=== PATIENT | female | born 1995 | race American Indian/Alaskan Native ===

== ENCOUNTER 2018-02-17 18:03 | Outpatient (CLI) | payer MEDICAID ==
[2018-02-17] MEDS ORDERED: LACTATED RINGERS 500 ML IV ONE (18:08)
[2018-02-17] MEDS ORDERED: LACTATED RINGERS 1,000 ML IV ONE (18:44)
[2018-02-17 18:56] LABS: Bacteria,Urine 1+ /HPF (Negative); Bilirubin,Urine NEG (Negative); Blood,Urine NEG (Negative); Color,Urine Amber (Yellow); Mucus,Urine 3+ /HPF
--- NOTE | 2018-02-17 19:58 | Event Note ---
Date: 02/17/18 22 year old at 29 4/7 weeks gestation presented to triage complaining of lower pelvic pain in midline beginning today. Patient denies back pain, flank pain, fever, chills, nausea or vomiting. Pt. reports a few [place] contractions after standing at work all day. She denies regular contractions. Patient denies leaking of fluid or vaginal bleeding. Patient reports active movement. Patient is well appearing, alert, oriented, NAD. Afebrile. VSS. Abdomen soft, nontender; no CVAT. Urine shows + WBCs, + RBCs, + bacteria. Cervix closed, thick , posterior. Rx Macrobid 100 mg, #14, 1 po BID called to [facility] on [address] for patient. Advised pt. to increase water intake (pt. has received IV hydration here in triage today). Advised pt. re: UTI warning signs. Follow up with [facility] this week. Discussed signs of PTL and warning signs with pt. Pt. voiced understanding.
[2018-02-17] MEDS ORDERED: BRETHINE SUB-Q ONE (20:21)
[2018-02-17] MEDS ORDERED: BRETHINE ONE (20:23)
[2018-02-17] MEDS ORDERED: ROCEPHIN/NS 1 GM/50 ML 1 GM/50 ML BAG IV ONE (20:23)
[2018-02-17 21:40] VITALS: BP 129/70
== END 2018-02-17 21:55 | disposition home or self-care (01) ==
LOC: TRG 18:03
PROVIDERS: ATTEND Obstetrics & Gynecology
DX: O47.03 False labor before 37 completed weeks of gestation, third trimester (principal); Z3A.29 29 weeks gestation of pregnancy
CPT/HCPCS: 81001; J0696; J3105; J7120; 59025; 96360; 96365; 96372

== ENCOUNTER 2019-01-02 14:00 | Emergency (ER) | payer MEDICAID ==
[2019-01-02 14:19] VITALS: BP 122/74
--- NOTE | 2019-01-02 14:21 | Emergency Department Report ---
ED Eye Problem HPI - General Chief complaint: Eye Problems Stated complaint: PINK EYE Time Seen by Provider: 01/02/19 14:16 Source: patient Mode of arrival: Ambulatory Limitations: No Limitations - History of Present Illness Initial comments: pt is a 23 yo female who presents to the ED with erythema and pain to the bilateral eyes that began 4 days ago. she has associated drainage which is yellow/green in color from bilateral eyes. she states she has noticed crusting and matting of the eyelashes. no vision problems. no one else with the same thing. did not get anything in the eye. no contact use. no PMHx. no allergies to meds. - Related Data Home Medications Medication Instructions Recorded Confirmed Last Taken Vits96/Iron Fum/Folic 1 tab PO DAILY 06/14/13 04/14/18 06/25/13 08:00 [ Tablet] Previous Rx's Medication Instructions Recorded Last Taken Type Ferrous Sulfate [Feosol 325 MG tab] 325 mg PO BID #60 tablet 04/14/18 Unknown Rx HYDROcodone/APAP 5-325 [[place] 1 each PO Q6HR PRN #30 tablet 04/14/18 Unknown Rx 5/325] Ibuprofen [Motrin] 800 mg PO Q8HR PRN #30 tablet 04/14/18 Unknown Rx Vit Calc,Iron,Folic 1 each PO DAILY #30 tablet 04/14/18 Unknown Rx [ Vitamins] Erythromycin [Erythromycin Ophth 0.5 inch OP QID 5 Days #1 tube 01/02/19 Unknown Rx Oint] Allergies Allergy/AdvReac Type Severity Reaction Status Date / Time No Known Allergies Allergy Verified 06/25/13 22:28 ED Review of Systems ROS: Stated complaint: PINK EYE Other details as noted in HPI Comment: All other systems reviewed and negative ED Past Medical Hx - Past Medical History Previous Medical History?: No Hx Hypertension: No Hx Congestive Heart Failure: No Hx Diabetes: No Hx Deep Vein Thrombosis: No Hx Renal Disease: No Hx Sickle Cell Disease: No Hx Seizures: No Hx Asthma: No Hx COPD: No Hx HIV: No - Surgical History Past Surgical History?: Yes Additional Surgical History: - Social History Smoking Status: Never Smoker - Medications Home Medications: Home Medications Medication Instructions Recorded Confirmed Last Taken Type Vits96/Iron Fum/Folic 1 tab PO DAILY 06/14/13 04/14/18 06/25/13 08:00 History [ Tablet] Ferrous Sulfate [Feosol 325 MG tab] 325 mg PO BID #60 tablet 04/14/18 Unknown Rx HYDROcodone/APAP 5-325 [[place] 1 each PO Q6HR PRN #30 tablet 04/14/18 Unknown Rx 5/325] Ibuprofen [Motrin] 800 mg PO Q8HR PRN #30 tablet 04/14/18 Unknown Rx Vit Calc,Iron,Folic 1 each PO DAILY #30 tablet 04/14/18 Unknown Rx [ Vitamins] Erythromycin [Erythromycin Ophth 0.5 inch OP QID 5 Days #1 tube 01/02/19 Unknown Rx Oint] ED Physical Exam - General Limitations: No Limitations General appearance: alert, in no apparent distress - Head Head exam: Present: atraumatic, normocephalic - Eye Eye exam: Present: PERRL, EOMI, conjunctival injection (bilaterally with mucus drainage in the corners of the bilateral eyes ). Absent: scleral icterus, nystagmus, periorbital swelling, periorbital tenderness - ENT ENT exam: Present: mucous membranes moist - Neurological Exam Neurological exam: Present: alert, oriented X3 - Psychiatric Psychiatric exam: Present: normal affect, normal mood - Skin Skin exam: Present: warm, dry, intact ED Course Vital Signs 01/02/19 14:17 Temperature 98.0 F Pulse Rate 91 H Respiratory 18 Rate Blood Pressure 122/74 O2 Sat by Pulse 100 Oximetry ED Medical Decision Making - Medical Decision Making pt is a 23 yo female who presents to the ED with erythema and pain to the bilateral eyes that began 4 days ago. she has associated drainage which is yellow/green in color from bilateral eyes. she states she has noticed crusting and matting of the eyelashes. no vision problems. no one else with the same thing. did not get anything in the eye. no contact use. no PMHx. no allergies to meds. examination consistent with bilateral conjunctivitis. pt given prescription for erythromycin ointment. advised to please use medication as prescribed. follow up with a primary care doctor in the next 2-3 days. return to the emergency room for any new or worsening symptoms. - Differential Diagnosis conjunctivitis, hordeolum, chalazion, corneal abrasion Critical care attestation.: If time is entered above; I have spent that time in minutes in the direct care of this critically ill patient, excluding procedure time. ED Disposition Clinical Impression: Conjunctivitis Qualifiers: Conjunctivitis type: acute Acute conjunctivitis type: unspecified Laterality: bilateral Qualified Code(s): H10.33 - Unspecified acute conjunctivitis, bilateral Disposition: TO HOME OR SELFCARE Is pt being admited?: No Does the pt Need Aspirin: No Condition: Stable Instructions: Conjunctivitis (ED) Additional Instructions: please use medication as prescribed. follow up with a primary care doctor in the next 2-3 days. return to the emergency room for any new or worsening symptoms. Prescriptions: Erythromycin [Erythromycin Ophth Oint] 0.5 inch OP QID 5 Days #1 tube Referrals: [facility] [Outside] - 2-3 Days [facility] [Provider Group] - 2-3 Days [facility] [Outside] - 2-3 Days Forms: Work/School Release Form(ED) Time of Disposition: 14:20 Print Language: PORTUGUESE
== END 2019-01-02 14:32 | disposition home or self-care (01) ==
LOC: ED 14:00
DX: H10.9 Unspecified conjunctivitis (principal); Z79.899 Other long term (current) drug therapy

== ENCOUNTER 2019-01-06 14:32 | Emergency (ER) | payer MEDICAID ==
[2019-01-06 15:26] VITALS: BP 123/77
--- NOTE | 2019-01-06 15:34 | Emergency Department Report ---
[place] Chief Complaint: Eye Problems Stated Complaint: POSS PINK EYE Time Seen by Provider: 01/06/19 15:33 Duration: 5 Days Side: Left Severity: mild Symptoms: Yes Eye Itching, Yes Eye Redness (with crusting), No Eye Pain, No Mucous Drainage, No Purulent Drainage, No Blurred Vision, No Preceding URI, No H/O Allergic Rhinitis, No Contact Lens Use, No Trauma, No Fever, No Headache Other History: This is a 23-year-old female nontoxic well in appearance with no signs of distress presents to the ED with complaint of left eye itching, crusting and driange. Denies any floaters. Denies foreign body sensation. Denies any trauma. Stated erythromycin has not been helping. Denies any visual changes or pain. Patient denies any other symptoms. Denies any fever, chills, headache, nausea, vomiting, chest pain or SOB. Denies any other complaints. Denies any PMH or allergies. ED Review of Systems ROS: Stated complaint: POSS PINK EYE Other details as noted in HPI Constitutional: denies: chills, fever Eyes: eye discharge. denies: eye pain, vision change ENT: denies: ear pain, throat pain Respiratory: denies: cough, shortness of breath, wheezing Cardiovascular: denies: chest pain, palpitations Endocrine: no symptoms reported Gastrointestinal: denies: abdominal pain, nausea, diarrhea Genitourinary: denies: urgency, dysuria, discharge Musculoskeletal: denies: back pain, joint swelling, arthralgia Skin: denies: rash, lesions Neurological: denies: headache, weakness, paresthesias Psychiatric: denies: anxiety, depression Hematological/Lymphatic: denies: easy bleeding, easy bruising ED Past Medical Hx - Past Medical History Hx Hypertension: No Hx Congestive Heart Failure: No Hx Diabetes: No Hx Deep Vein Thrombosis: No Hx Renal Disease: No Hx Sickle Cell Disease: No Hx Seizures: No Hx Asthma: No Hx COPD: No Hx HIV: No - Surgical History Additional Surgical History: - Social History Smoking Status: Never Smoker Substance Use Type: None - Medications Home Medications: Home Medications Medication Instructions Recorded Confirmed Last Taken Type Vits96/Iron Fum/Folic 1 tab PO DAILY 06/14/13 04/14/18 06/25/13 08:00 History [ Tablet] Ferrous Sulfate [Feosol 325 MG tab] 325 mg PO BID #60 tablet 04/14/18 Unknown Rx HYDROcodone/APAP 5-325 [[place] 1 each PO Q6HR PRN #30 tablet 04/14/18 Unknown Rx 5/325] Ibuprofen [Motrin] 800 mg PO Q8HR PRN #30 tablet 04/14/18 Unknown Rx Vit Calc,Iron,Folic 1 each PO DAILY #30 tablet 04/14/18 Unknown Rx [ Vitamins] Erythromycin [Erythromycin Ophth 0.5 inch OP QID 5 Days #1 tube 01/02/19 Unknown Rx Oint] Polymyxin B Sulf/Trimethoprim 2 drops OS TID #1 drops 01/06/19 Unknown Rx [Polytrim Eye Drops] [place] [facility] Exam - Exam General: Vital signs noted. No distress. Alert and acting appropriately. Eye Exam: Neither Injection, Neither Chemosis, Neither Abnormal Pupil, Neither EOMI, Neither Eye Foreign Body, Neither Lid Foreign Body, Neither Mucous Discharge, Neither Purulent Discharge, Neither Fluorescein Uptake, Neither Fl uorescein Uptake (slit lamp), Neither Cell/Flare (slit lamp), Neither Corneal Edema, Neither Photophobia HEENT: No Nasal Congestion, No Pharyngeal Erythema Remainder of HEENT: Normal Lungs: Yes Clear Lung Sounds, Yes Good Air Exchange, No Wheezes, No Stridor, No Cough, No Nasal Flaring, No Retractions, No Use of Accessory Muscles Exam: left eye crusting with itching and redness. ED Course Vital Signs 01/06/19 15:24 Temperature 98 F Pulse Rate 124 H Respiratory 18 Rate Blood Pressure 123/77 O2 Sat by Pulse 98 Oximetry - Reevaluation(s) Reevaluation #1: 01/06/19 15:36 Patient is speaking in full sentences with no signs of distress noted. ED Medical Decision Making - Medical Decision Making Patient was instructed to Follow-up with a primary care and opthomologist doctor in 3-5 days or if symptoms worsen and continue return to emergency room as soon as possible. At time of discharge, the patient does not seem toxic or ill in appearance. No acute signs of distress noted. Patient agrees to discharge treatment plan of care. No further questions noted by the patient. Critical care attestation.: If time is entered above; I have spent that time in minutes in the direct care of this critically ill patient, excluding procedure time. ED Disposition Clinical Impression: Conjunctivitis Qualifiers: Conjunctivitis type: acute Acute conjunctivitis type: unspecified Laterality: left Qualified Code(s): H10.32 - Unspecified acute conjunctivitis, left eye Disposition: DC-01 TO HOME OR SELFCARE Is pt being admited?: No Does the pt Need Aspirin: No Condition: Stable Instructions: Conjunctivitis (ED) Additional Instructions: Follow-up with a primary care and opthomologist doctor in 3-5 days or if symptoms worsen and continue return to emergency room as soon as possible. Prescriptions: Polymyxin B Sulf/Trimethoprim [Polytrim Eye Drops] 2 drops OS TID #1 drops Referrals: [facility] [Referring] - 3-5 Days JULY WEISS MD [Staff Physician] - 3-5 Days BRIJESH PHILLIPS MD [Staff Physician] - 3-5 Days [facility] [Outside] - 3-5 Days Forms: Work/School Release Form(ED)
== END 2019-01-06 17:13 | disposition home or self-care (01) ==
LOC: ED 14:32
DX: H10.32 Unspecified acute conjunctivitis, left eye (principal)
CPT/HCPCS: 99282

== ENCOUNTER 2019-06-13 23:55 | Inpatient (IN) | payer MEDICAID, OTHER ==
[2019-06-14] MEDS ORDERED: LACTATED RINGERS 1,000 ML IV ONE (00:44)
[2019-06-14 01:35] LABS: Hematocrit 34.4 % (30.3-42.9); Hemoglobin 10.9 gm/dl (10.1-14.3); Mean Corpuscular HGB Conc 32 % (30-34); Mean Corpuscular Volume 78 fl (79-97); Platelet Count 286 K/mm3 (140-440); Red Blood Count 4.42 M/mm3 (3.65-5.03); Red Cell Distribution Width 18.1 % (13.2-15.2)
--- NOTE | 2019-06-14 01:54 | Ultrasound Report ---
US OB >= 14 weeks Fetus INDICATION / CLINICAL INFORMATION: no care/contrations/prev c/s. COMPARISON: None available. FINDINGS: Single, viable intrauterine in cephalic presentation. heart rate 144. Amniotic fluid volume is lower limits of normal, with a fluid index of 8 cm. Placenta is anterior and free of the cervical os. stomach, kidneys and bladder, diaphragm, spine, cord and insertion and four-chamber heart are i dentified. Biparietal diameter 8.7 cm, 35 weeks 1 day. Head circumference 31.0 cm, 34 weeks 5 days. Abdominal circumference 30.1 cm, 35 weeks 0 days. Femur length 7.2 cm, 36 weeks 0 days. Estimated body weight 2686 g. IMPRESSION: 1. Viable 35 week 3 day intrauterine . Signer Name: Khurram Lee MD Signed: 06/14/2019 1:50 AM Workstation Name: [id number]
[2019-06-14] MEDS ORDERED: LACTATED RINGERS 1,000 ML ONE (01:59)
[2019-06-14 02:03] LABS: Bilirubin,Urine NEG (Negative); Blood,Urine NEG (Negative); Color,Urine Amber (Yellow); Mucus,Urine 3+ /HPF
[2019-06-14] MEDS ORDERED: BETAMET ACET/BETAMET NA PH 6 MG/ML INJ 5 ML MDV IM ONE (02:05)
[2019-06-14 02:06] LABS: Hepatitis C Virus Antibody Non-Reactive (NonReactive)
[2019-06-14] MEDS: LACTATED RINGERS 1,000 ML IV SCH ×2 (02:06→03:44)
[2019-06-14 02:22] LABS: Amphetamine Screen,Urine PRESUMPTIVE NEGATIVE; Benzodiazepines Screen,Urine PRESUMPTIVE NEGATIVE; Cocaine Screen,Urine PRESUMPTIVE NEGATIVE; Methadone Screen,Urine PRESUMPTIVE NEGATIVE; Opiate Screen,Urine PRESUMPTIVE NEGATIVE
[2019-06-14 02:35] LABS: Cannabinoid Screen,Urine PRESUMPTIVE POSITIVE
[2019-06-14] MEDS ORDERED: NALOXONE 0.4 MG/1 ML INJ IV PRN ×2 (03:07→14:02)
[2019-06-14] MEDS ORDERED: ONDANSETRON 4 MG/2 ML INJ IV PRN ×2 (03:07→14:02)
[2019-06-14] MEDS ORDERED: ePHEDrine SULFATE 50 MG/1 ML INJ IV PRN ×2 (03:07→04:55)
[2019-06-14] MEDS ORDERED: fentaNYL 100 MCG/2 ML INJ IV PRN (03:07)
[2019-06-14] MEDS ORDERED: LIDOCAINE (2%) 20 MG/1 ML VIAL 20 ML MDV INFILTRATI ONE (03:07)
[2019-06-14] MEDS ORDERED: BUTORPHANOL 2 MG/1 ML INJ IV PRN (03:07)
[2019-06-14] MEDS ORDERED: TERBUTALINE 1 MG/1 ML INJ IVP PRN (03:07)
[2019-06-14] MEDS ORDERED: MINERAL OIL 30 ML ORAL LIQD PO PRN (03:07)
[2019-06-14] MEDS ORDERED: AMPICILLIN/NS 2 GM/100 ML 2 GM/100 ML BAG IV ONE (03:07)
[2019-06-14] MEDS ORDERED: TERBUTALINE 1 MG/1 ML INJ SUB-Q PRN (03:07)
[2019-06-14] MEDS ORDERED: LACTATED RINGERS 1,000 ML IV SCH ×2 (04:00→09:00)
[2019-06-14] MEDS ORDERED: OXYTOCIN 20 UNIT/1000ML DRIP 20 UNITS/1,000 ML BAG IV SCH ×3 (04:00→14:02)
[2019-06-14] MEDS ORDERED: OXYTOCIN DRIP 30 UNITS/500 ML BAG IV SCH (04:00)
[2019-06-14] MEDS ORDERED: DEXMEDETOMIDINE 200 MCG/2 ML VIAL IV ONE ×2 (04:26→08:38)
[2019-06-14] MEDS ORDERED: NALOXONE 2 MG/2 ML INJ IV PRN (04:55)
--- NOTE | 2019-06-14 04:57 | Anesthesia Consultation ---
Anesthesia Consult and Med Hx Date of service: 06/14/19 - Airway Anesthetic Teeth Evaluation: Good ROM Head & Neck: Adequate Mental/Hyoid Distance: Adequate Mallampati Class: Class II Intubation Access Assessment: Probably Good - Pulmonary Exam CTA: Yes - Cardiac Exam Cardiac Exam: RRR - Pre-Operative Health Status ASA Pre-Surgery Classification: ASA2 Proposed Anesthetic Plan: Epidural - Pulmonary Hx Smoking: No Hx Asthma: No Hx Respiratory Symptoms: No SOB: No COPD: No Home Oxygen Therapy: No Hx Pneumonia: No Hx Sleep Apnea: No - Cardiovascular System Hx Hypertension: No Hx Coronary Artery Disease: No Hx Heart Attack/AMI: No Hx Angina: No Hx Percutaneous Transluminal Coronary Angioplasty (PTCA): No Hx Cardia Arrhythmia: No Hx Pacemaker: No Hx Internal Defibrillator: No Hx Valvular Heart Disease: No Hx Heart Murmur: No Hx Peripheral Vascular Disease: No - Central Nervous System Hx Neuromuscular Disorder: No Hx Seizures: No CVA: No Hx Back Pain: No Hx Psychiatric Problems: No - Gastrointestinal Hx Ulcer: No Hx Gastroesophageal Reflux Disease: No - Endocrine Hx Renal Disease: No Hx End Stage Renal Disease: No Hx Cirrhosis: No Hx Liver Disease: No Hx Insulin Dependent Diabetes: No Hx Non-Insulin Dependent Diabetes: No Hx Thyroid Disease: No Hx Hypothyroidism: No Hx Hyperthyroidism: No - Hematic Hx Anemia: Yes Hx Sickle Cell Disease: No - Other Systems Hx Alcohol Use: No Hx Substance Use: No Hx Cancer: No Hx Obesity: Yes
[2019-06-14] MEDS ORDERED: fentaNYL-BUPIV 2 MCG/ML-0.125% 200 MCG/100 ML BAG EPIDURAL SCH (05:00)
--- NOTE | 2019-06-14 05:03 | History and Physical Report ---
History of Present Illness Date of examination: 06/14/19 Date of admission: 06/14/19 04:06 Chief complaint: contractions History of present illness: Pt is a 23 year old -[place] female at 35w3d by ultrasound this hospitalization presents with regular painful contractions and dilation of 4 cm. She changed to 5 cm during her evaluation. She has had no care this . Her GBS status is unknown. Past History Past Medical History: no pertinent history Past Surgical History: section Social history: no significant social history - Obstetrical History Expected Date of Delivery: 07/16/19 Actual Gestation: 35 Week(s) 3 Day(s) : 3 Para: 2 Hx # Term Pregnancies: 2 Number of Pregnancies: 0 Spontaneous Abortions: 0 Induced : 0 Number of Living Children: 2 Medications and Allergies Allergies Allergy/AdvReac Type Severity Reaction Status Date / Time No Known Allergies Allergy Verified 06/25/13 22:28 Home Medications Medication Instructions Recorded Confirmed Last Taken Type No Known Home Medications [No 06/14/19 06/14/19 Unknown History Reported Home Medications] Active Meds: Active Medications Butorphanol Tartrate (Stadol) 2 mg IV Q2H PRN PRN Reason: Pain , Severe (7-10) Ephedrine Sulfate (Ephedrine Sulfate) 10 mg IV Q2M PRN PRN Reason: Hypotension Ephedrine Sulfate (Ephedrine Sulfate) 10 mg IV Q2M PRN PRN Reason: Hypotension Fentanyl (Sublimaze) 100 mcg IV Q2H PRN PRN Reason: Labor Pain Lactated Ringer's (Lactated Ringers) 1,000 mls @ 125 mls/hr IV DIRECT ALLY Last Admin: 06/14/19 03:44 Dose: 125 mls/hr Documented by: Oxytocin/Sodium Chloride (Pitocin/Ns 20 Unit/1000ml Drip) 20 units in 1,000 mls @ 125 mls/hr IV DIRECT ALLY Oxytocin/Sodium Chloride (Pitocin/Ns 30 Unit/500ml) 30 units in 500 mls @ 2 mls/hr IV TITR ALLY; Protocol Lactated Ringer's (Lactated Ringers) 1,000 mls @ 125 mls/hr IV DIRECT ALLY Ampicillin Sodium (Ampicillin/Ns 1 Gm/50 Ml) 1 gm in 50 mls @ 100 mls/hr IV Q4HR ALLY; Protocol Fentanyl/Bupivacaine/Sodium Chlor (Fentanyl-Bupiv 2 Mcg/Ml-0.125%) 200 mcg in 100 mls @ 12 mls/hr EPIDURAL TITR ALLY; Protocol Mineral Oil (Mineral Oil) 30 ml PO QHS PRN PRN Reason: Constipation Naloxone HCl (Naloxone) 0.1 mg IV Q2MIN PRN PRN Reason: Res Rate </= 8 or 02 SAT < 92% Naloxone HCl (Naloxone) 0.2 mg IV Q5M PRN PRN Reason: Respiratory sedation Ondansetron HCl (Zofran) 4 mg IV Q8H PRN PRN Reason: Nausea And Vomiting Terbutaline Sulfate (Brethine) 0.25 mg SUB-Q ONCE PRN PRN Reason: Hyperstimulation/Hypertonicity Terbutaline Sulfate (Brethine) 0.25 mg IVP ONCE PRN PRN Reason: Hyperstimulation/Hypertonicity Review of Systems All systems: negative - Vital Signs Vital signs: Vital Signs Temp Pulse Resp BP 98.1 F 108 H 18 119/75 06/14/19 00:46 06/14/19 00:46 06/14/19 00:46 06/14/19 00:46 Temp Pulse Resp BP Pulse Ox 98.1 F 87 18 125/63 100 06/14/19 00:46 06/14/19 04:57 06/14/19 00:46 06/14/19 04:57 06/14/19 04:56 - Physical Exam Breasts: Positive: deferred Abdomen: Positive: soft (gravid ) Genitourinary (Female): Positive: normal external genitalia Uterus: Positive: enlarged (gravid ) Extremities: Positive: normal - Obstetrical FHR: category 2 Uterine Contraction Monitor Mode: External Cervical Dilatation: 7 Cervical Effacement Percentage: 100 station: -3 Uterine Contraction Pattern: Irregular Uterine Tone Measurement Phase: Resting Uterine Contraction Intensity: Moderate Results Result Diagrams: 06/14/19 01:05 Abnormal lab results 06/14/19 06/14/19 Range/Units 01:05 01:05 WBC 11.4 H (4.5-11.0) K/mm3 MCV 78 L (79-97) fl MCH 25 L (28-32) pg RDW 18.1 H (13.2-15.2) % Ur Specific [place] 1.032 H (1.003-1.030) U Epithel Cells (Auto) 19.0 H (0-13.0) /HPF All other labs normal. Assessment and Plan A: IUP at 35w3d labor Prior x 1, op note reviewed low transverse No care GBS unknown P: Admit to labor and delivery panel Ampicillin for GBS prophylaxis Betamethasone Epidural as desired Routine intrapartum care
[2019-06-14] MEDS ORDERED: AMPICILLIN/NS 1 GM/50 ML 1 GM/50 ML BAG IV SCH (07:09)
[2019-06-14] MEDS ORDERED: FAMOTIDINE 20 MG/2 ML INJ IV ONE ×2 (08:38→08:42)
[2019-06-14] MEDS ORDERED: METOCLOPRAMIDE 10 MG/2 ML INJ IV ONE (08:38)
[2019-06-14] MEDS ORDERED: LIDOCAINE 2%/EPINEPHRINE 1:200,000 VIAL (20 ML) INFILTRATI ONE (08:38)
[2019-06-14] MEDS ORDERED: BICITRA ORAL LIQD 30ML PO ONE (08:38)
--- NOTE | 2019-06-14 08:39 | Event Note ---
Date: 06/14/19 Late entry. Pt progressed to complete dilation and -1 station. After one trial push, there was a bradycardia down to the 70s for 90 seconds with slow return to baseline.
[2019-06-14] MEDS ORDERED: SODIUM CHLORIDE 0.9% IRR 1,500 ML BOTTLE IR ONE (08:50)
[2019-06-14] MEDS ORDERED: WATER FOR IRRIG STERILE 1,500 ML BOTTLE IR ONE (08:50)
[2019-06-14] MEDS ORDERED: ceFAZolin/Water 2 GM/20 ML 2 GM/20 ML SYRINGE IV NR (09:00)
--- NOTE | 2019-06-14 10:03 | Post Anesthesia Evaluation ---
- Post Anesthesia Evaluation Patient Participated: Yes Airway Patent: Yes Stable Respiratory Function: Yes Nausea/Vomiting: No Temp > 96.8F: Yes Pain Manageable: Yes Adequeate Hydration: Yes Anesthesia Complications: No Block Receding Appropriately: Yes Patient on Ventilator: No
--- NOTE | 2019-06-14 10:45 | Procedure Note ---
OB Delivery Note - Delivery Date of Delivery: 06/14/19 Surgeon: ADDIS ROE Estimated blood loss: other (900 mL) - Section Preop diagnosis: nonreassuring FHR tracing Postop diagnosis: same section procedure: section, repeat low transverse Disposition: PACU Complications: none Narrative: Please see operative report - Infant A at 1 minute: 8 at 5 minutes: 9 Infant Gender: Male (2940g (6lb 7oz) @ 0859 am)
--- NOTE | 2019-06-14 10:45 | Operative Report ---
Operative Report Operative Report: Date of procedure: May Preoperative diagnosis: 1) IUP at 35w3d 2) Labor 3) Nonreassuring status- bradycardia 4) Previous x 1 5) No Care Postoperative diagnosis: Same Procedure:Repeat low transverse section Surgeon: Jolie Benitez M.D. Anesthesia: Regional Findings: 1) Viable male , Apgars 8 and 9, weight 2940g, (6 lb 7 oz) in cephalic presentation. Occiput Posterior 2) Normal-appearing uterus ovaries and tubes Estimated blood loss: 900 mL IV fluids: 1000 mL Urine output: 300 mL, clear at the end of the procedure Drains: [place] to gravity Specimens: Placenta to pathology Complications: Counts correct x 3 Disposition: Stable to PACU Indication for procedure: Pt is a 23 year old -[place] female at 35w3d with h/o prior section presents in labor. She progressed to complete dilation and bradycardia developed after attempt at pushing. The decision was made to proceed to delivery. Operation in detail: After the risks, benefits, alternatives and complications were explained to the patient she gave informed consent for the procedure. She was subsequently taken to the operating room where regional anesthesia was noted to be adequate. She was subsequently placed in the dorsal supine position with leftward tilt and prepped and draped in a normal sterile fashion. heart tones were noted to be the 120s prior to incision. A timeout was performed. A Pfannenstiel skin incision was made with the knife and carried down to the layer of the fascia with the Bovie. The fascia was incised in the midline and the fascial incision was extended bilaterally with the Bovie. The fascial incision was then stretched. The rectus muscles were then in the midline. The peritoneum was then entered bluntly. The peritoneal incision was extended with good visualization of the bladder. The peritoneal incision was then stretched. An Jack retractor was placed. The bladder blade was placed. The vesicouterine peritoneum was grasped with smooth pickups and incised with Metzenbaum scissors. Metzenbaum scissors were used to extend the incision bilaterally. The bladder flap was then created digitally and the bladder blade was replaced. A transverse incision was made in the lower uterine segment with a knife and extended bilaterally with the bandage scissors. The head was delivered with some difficulty followed by shoulders and body. was bulb suctioned at delivery. The cord was clamped and cut and the was handed to NICU staff in attendance. Cord blood was collected. The placenta was then delivered manually. The uterus was then exteriorized and cleared of all clots and debris. The hysterotomy was then reapproximated with 0 Vicryl in a running locked fashion. A second layer of the same suture was used in an imbricating fashion. The hysterotomy was inspected and hemostasis was noted. The gutters were irrigated and cleared of all clots and debris. The hysterotomy was again inspected and noted to be hemostatic. Surgicel was placed over the hysterotomy. The peritoneum was reapproximated with 2-0 Vicryl in a running fashion incorporating the rectus muscles. The fascia was reapproximated with 0-Vicryl in a running fashion. The subcutaneous tissue was reapproximated with 3-0 Vicryl in a running fashion. The skin was reapproximated with kimberlee. The incision was then covered with a pressure dressing. The procedure was then ended. The patient tolerated the procedure well and was taken to the PACU in stable condition. All instrument, lap, and needle counts were correct 3.
[2019-06-14] MEDS ORDERED: FLU VACC QUAD 2019-20 (3 YR UP)/PF 60 MCG/0.5 ML SYRINGE IM ONE (12:00)
[2019-06-14] MEDS ORDERED: MAGNESIUM HYDROXIDE (MOM) ORAL LIQD UDC PO PRN (14:02)
[2019-06-14] MEDS ORDERED: MORPHINE 2 MG/1 ML INJ IV PRN (14:02)
[2019-06-14] MEDS ORDERED: MORPHINE 4 MG/1 ML INJ IV PRN (14:02)
[2019-06-14] MEDS ORDERED: SIMETHICONE 80 MG CHEW TAB PO PRN (14:02)
[2019-06-14] MEDS ORDERED: D5W/LACTATED RINGERS 1,000 ML IV SCH (14:02)
[2019-06-14] MEDS ORDERED: IBUPROFEN 800 MG TAB PO PRN (14:02)
[2019-06-14] MEDS ORDERED: LANOLIN/ZINC/DIMETHICONE (LANSINOH) 7 GM TP PRN (14:02)
[2019-06-14] MEDS ORDERED: WITCH HAZEL/ GLYCERIN PAD TP PRN (14:02)
[2019-06-14] MEDS: KETOROLAC 30 MG/1 ML INJ IV SCH ×2 (14:29→20:40)
[2019-06-14] MEDS: ceFAZolin/NS 1 GM/50 ML 1 GM/50 ML BAG IV SCH ×2 (14:30→22:30)
[2019-06-14 23:58] LABS: Hematocrit 29.8 % (30.3-42.9); Hemoglobin 9.5 gm/dl (10.1-14.3)
[2019-06-15] MEDS: oxyCODONE /ACETAMINOPHEN 5-325MG TAB PO PRN ×4 (00:09→13:30)
--- NOTE | 2019-06-15 06:07 | Progress Note ---
Assessment and Plan A: POD#1 s/p repeat section at 35 wks secondary to labor transferred to another facility for medical care P: Routine advances with discharge this afternoon and follow up early next week in the office. Subjective - Subjective Date of service: 06/15/19 Principal diagnosis: s/p repeat at 35 wks Interval history: Pt without complaints. 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 She would like to go home to be with her baby. ) Objective - Vital Signs Latest vital signs: Vital Signs Temp Pulse Resp BP BP Pulse Ox 06/15/19 04:05 18 06/15/19 00:54 97.7 F 93 H 18 115/71 98 06/14/19 20:30 97.7 F 85 18 125/76 98 06/14/19 17:46 98.0 F 101 H 18 120/71 97 06/14/19 12:15 97.7 F 70 18 112/66 99 06/14/19 10:30 71 14 100/64 98 06/14/19 10:15 91 H 13 96/63 99 06/14/19 10:01 94 H 14 91/52 99 06/14/19 09:55 96 H 16 98/56 99 06/14/19 09:52 96 H 13 94/52 98 06/14/19 09:50 95 H 13 86/50 97 06/14/19 09:47 97.5 F L 99 H 13 85/33 97 06/14/19 08:26 81 100 06/14/19 08:21 82 100 06/14/19 08:16 87 100 06/14/19 08:11 87 100 06/14/19 08:06 73 100 06/14/19 08:01 80 100 06/14/19 08:00 74 112/63 06/14/19 07:56 78 100 06/14/19 07:51 88 100 06/14/19 07:46 85 98 06/14/19 07:41 86 98 06/14/19 07:36 94 H 99 06/14/19 07:31 91 H 99 06/14/19 07:27 100 H 117/77 06/14/19 07:26 78 100 06/14/19 07:25 98.1 F 88 20 120/70 100 06/14/19 07:21 79 100 06/14/19 07:16 82 120/70 100 06/14/19 07:11 95 H 100 06/14/19 07:06 95 H 100 06/14/19 07:01 89 100 06/14/19 06:56 96 H 100 06/14/19 06:51 84 100 06/14/19 06:46 80 100 06/14/19 06:41 85 100 06/14/19 06:36 83 100 06/14/19 06:31 81 100 06/14/19 06:27 77 119/72 06/14/19 06:26 76 100 06/14/19 06:21 84 100 06/14/19 06:16 80 100 06/14/19 06:11 85 99 Intake and Output 06/14/19 06/14/19 06/15/19 14:59 22:59 06:59 Intake Total 1100 890 Output Total 2200 3000 500 Balance -1100 -2110 -500 Intake: IV 1100 50 ANCEF/NS 1 GM/50 ML 1 gm 50 In 50 ml @ 100 mls/hr IV Q8H [facility] Rx#:[id number] Oral 840 Output: Urine 2200 3000 500 Indwelling Catheter 1100 3000 Void 500 Other: Total, Intake Amount 240 Total, Output Amount 1100 800 500 # Voids Void 1 - Exam Breasts: Present: deferred Cardiovascular: Present: Regular rate Lungs: Present: Clear to auscultation Abdomen: Present: soft Uterus: Present: fundal height below umbilicus Incision: Present: dressed - Labs Labs: Abnormal lab results 06/14/19 Range/Units 23:38 Hgb 9.5 L (10.1-14.3) gm/dl Hct 29.8 L (30.3-42.9) %
--- NOTE | 2019-06-15 08:24 | Discharge Summary ---
Providers - Providers Date of Admission: 06/14/19 04:06 Date of discharge: 06/15/19 Attending physician: ADDIS BENITEZ Primary care physician: ADDIS BENITEZ Hospitalization Reason for admission: active labor Delivery: Procedure: section, repeat low transverse Procedure details: Please see operative report. Incision: intact (with kimberlee ) Other procedures: none complications: none Discharge diagnosis: delivery [place] baby: male Hospital course: Pt was admitted with no care in active labor for trial of labor after . She progressed to complete dilation, but bradycardia occurred once pushing commenced. The patient then underwent repeat section which she tolerated well. The was transferred to an outside facility for continued medical care and the patient asks to be discharged early so she can be with her baby. As such the patient was discharged on POD#1 and will follow up in 1 week in the office. Condition at discharge: Stable Disposition: DC-01 TO HOME OR SELFCARE - Discharge Diagnoses (1) labor in third trimester Status: Acute Qualifiers: labor delivery status: with delivery in third trimester Fet us number: single or unspecified fetus Qualified Code(s): O60.14X0 - labor third trimester with delivery third trimester, not applicable or unspecified (2) No care in current Status: Acute Qualifiers: Trimester: third trimester Qualified Code(s): O09.33 - Supervision of with insufficient care, third trimester (3) S/P section Status: Acute (4) Anemia Status: Acute Qualifiers: Anemia type: unspecified type Qualified Code(s): D64.9 - Anemia, unspecifie d Plan - Discharge Medications Prescriptions: Ferrous Sulfate [Feosol 325 MG tab] 325 mg PO BID #60 tablet Ibuprofen [Motrin] 800 mg PO Q8HR PRN #30 tablet PRN Reason: Pain, Moderate (4-6) oxyCODONE /ACETAMINOPHEN [Percocet 5/325] 1 tab PO Q6HR PRN #30 tablet PRN Reason: Pain - Provider Discharge Summary Activity: routine, no sex for 6 weeks, no heavy lifting 4 weeks, no strenuous exercise Diet: routine Instructions: routine Additional instructions: [] Smoking cessation referral if applicable(refer to patient education folder for contact #) [] Refer to [facility]'s [facility] Booklet Call your doctor immediately for: * Fever > 100.5 * Heavy vaginal bleeding ( >1 pad per hour) * Severe persistent headache * Shortness of breath * Reddened, hot, painful area to leg or breast * Drainage or odor from incision. * Keep incision clean and dry at all times and follow doctor's instructions regarding bathing/showering - Follow up plan Follow up: ADDIS BENITEZ MD [Primary Care Provider] - 06/23/19 (Please call to schedule appt with Dr Benitez )
[2019-06-15] MEDS ORDERED: TETANUS,DIPH,PERTUSS(ACELL) VACCINE 0.5 ML SYRINGE IM ONE (11:11)
[2019-06-15] MEDS ORDERED: MEASLES, MUMPS & RUBELLA 12,500 UNIT/0.5 ML VACCINE SUB-Q ONE (11:11)
[2019-06-15 18:35] VITALS: BP 127/78
== END 2019-06-15 19:25 | disposition home or self-care (01) | DRG 786 ==
LOC: TRG 23:55 → LD 06-14 04:06 → OB 06-14 12:33
PROVIDERS: ADMIT Obstetrics & Gynecology; ATTEND Obstetrics & Gynecology
PROC: 10D00Z1 Extraction of Products of Conception, Low, Open Approach (ICD-10-PCS; principal; 2019-06-14)
PROC: 3E0234Z Introduction of Serum, Toxoid and Vaccine into Muscle, Percutaneous Approach (ICD-10-PCS; 2019-06-15)
DX: O76 Abnormality in fetal heart rate and rhythm complicating labor and delivery (principal); O60.14X0 Preterm labor third trimester with preterm delivery third trimester, not applicable or unspecified; O34.211 Maternal care for low transverse scar from previous cesarean delivery; O99.214 Obesity complicating childbirth; E66.9 Obesity, unspecified; Z3A.35 35 weeks gestation of pregnancy; Z37.0 Single live birth; O99.02 Anemia complicating childbirth; D64.9 Anemia, unspecified; Z23 Encounter for immunization
CPT/HCPCS: 36415; 76805; 80307; 81001; 85014; 85018; 85027; 86592; 86706; 86762; 86803; 86850; 86900; 86901; 87806; 88305; 88307; 90686; 96365; G0378; C1765; J0290; J0690; J0702; J1885; J2270; J2590; J2765; J3105; J3490; J7120; J7121